=== PATIENT | female | born 1950 | race Caucasian/White ===

== ENCOUNTER → 2016-05-09 | Outpatient (CLI) | payer OTHER ==
--- NOTE | 2016-05-09 17:18 | MA ---
Screening Digital Mammogram With Tomosynthesis and iCAD Indication: Routine screening. Personal history of left breast invasive ductal carcinoma diagnosed i n April 2015. Technique: Standard digital CC projections were obtained. Digital breast tomosynthesis was performed in the MLO projection with reconstruction at 1.0 mm slice thickness. Composite MLO views were recons tructed. This examination was processed by the iCAD computer-aided detection system. Comparison: April 2015 and April 2014 Breast density: Type B. Findings: CAD was reviewed. Benign lumpectomy scar in the upper-outer left breast. No suspicious micr ocalcifications or mass. Impression: Benign mammograms. BI-RADS 2: Benign finding. Recommendation: Routine screening is recommended in one year. [facility] will send a result letter to the patient. Negative mammography should not preclude additional workup of a clinically suspicious finding. The patient's information is entered into a reminder system with a target due date for her next mammo gram.
== END ==
LOC: FIMAGING 12:43
DX: Z12.31 Encounter for screening mammogram for malignant neoplasm of breast (principal); Z85.3 Personal history of malignant neoplasm of breast
CPT/HCPCS: G0202

== ENCOUNTER → 2016-06-29 | Outpatient (CLI) | payer OTHER | LOC: FIMAGING 16:10 | PROVIDERS: ATTEND Physical Medicine & Rehabilitation | DX: M16.11 Unilateral primary osteoarthritis, right hip (principal); M24.851 Other specific joint derangements of right hip, not elsewhere classified; M76.01 Gluteal tendinitis, right hip; M76.02 Gluteal tendinitis, left hip; M76.891 Other specified enthesopathies of right lower limb, excluding foot; M76.892 Other specified enthesopathies of left lower limb, excluding foot ==

== ENCOUNTER → 2017-05-10 | Outpatient (CLI) | payer OTHER | LOC: FIMAGING 07:50 | PROVIDERS: ATTEND Internal Medicine Hematology & Oncology | DX: Z12.31 Encounter for screening mammogram for malignant neoplasm of breast (principal); Z85.3 Personal history of malignant neoplasm of breast ==

== ENCOUNTER → 2017-12-28 | Outpatient (CLI) | payer OTHER | LOC: BRMIMAGING 14:10 | PROVIDERS: ATTEND Specialist | DX: Z12.31 Encounter for screening mammogram for malignant neoplasm of breast (principal); M85.88 Other specified disorders of bone density and structure, other site; E03.9 Hypothyroidism, unspecified ==

== ENCOUNTER → 2018-05-13 | Outpatient (CLI) | payer OTHER | LOC: FIMAGING 08:22 | PROVIDERS: ATTEND Internal Medicine Hematology & Oncology | DX: Z12.31 Encounter for screening mammogram for malignant neoplasm of breast (principal); Z85.3 Personal history of malignant neoplasm of breast ==